=== PATIENT | female | born 1995 | race American Indian/Alaskan Native ===

== ENCOUNTER 2020-10-31 17:39 | Emergency (ER) | payer SELFPAY ==
[2020-10-31 20:02] VITALS: BP 154/79
--- NOTE | 2020-10-31 21:05 | Emergency Department Report ---
ED ENT HPI - General Chief complaint: Dental/Oral Stated complaint: ABCESS IN THE JAR Time Seen by Provider: 10/31/20 21:01 Source: patient Mode of arrival: Ambulatory Limitations: No Limitations - History of Present Illness Initial comments: Patient is a 25-year-old female presents emergency room complaints of a dental abscess to the right lower tooth that began yesterday. Patient states that she has had a cracked tooth in this region for multiple years. She states that she saw dentist approximately a year ago and was advised that she needed to have a tooth extraction but due to monetary issues she did not follow back up. She denies any fever, nausea, vomiting, diarrhea, chills, difficulty swallowing, difficulty breathing. No past medical history. No allergies to medications. She is currently on her menstrual cycle. - Related Data Previous Rx's Medication Instructions Recorded Last Taken Type Chlorhexidine Mouthwash [Peridex] 15 ml MM BID #1 bottle 10/31/20 Unknown Rx Naproxen 375 mg PO BID PRN #14 tablet 10/31/20 Unknown Rx Penicillin Vk [Veetids TAB] 500 mg PO QID 7 Days #56 tablet 10/31/20 Unknown Rx ED Dental HPI - General Chief complaint: Dental/Oral Stated complaint: ABCESS IN THE JAR Time Seen by Provider: 10/31/20 21:01 Source: patient Mode of arrival: Ambulatory Limitations: No Limitations - Related Data Previous Rx's Medication Instructions Recorded Last Taken Type Chlorhexidine Mouthwash [Peridex] 15 ml MM BID #1 bottle 10/31/20 Unknown Rx Naproxen 375 mg PO BID PRN #14 tablet 10/31/20 Unknown Rx Penicillin Vk [Veetids TAB] 500 mg PO QID 7 Days #56 tablet 10/31/20 Unknown Rx ED Review of Systems ROS: Stated complaint: ABCESS IN THE JAR Other details as noted in HPI Comment: All other systems reviewed and negative ED Past Medical Hx - Past Medical History Previous Medical History?: No - Surgical History Past Surgical History?: No - Medications Home Medications: Home Medications Medication Instructions Recorded Confirmed Last Taken Type Chlorhexidine Mouthwash [Peridex] 15 ml MM BID #1 bottle 10/31/20 Unknown Rx Naproxen 375 mg PO BID PRN #14 tablet 10/31/20 Unknown Rx Penicillin Vk [Veetids TAB] 500 mg PO QID 7 Days #56 tablet 10/31/20 Unknown Rx ED Physical Exam - General Limitations: No Limitations General appearance: alert, in no apparent distress - Head Head exam: Present: atraumatic, normocephalic - Eye Eye exam: Present: normal appearance - ENT ENT exam: Present: mucous membranes moist, other (there is a cracked tooth present to the right lower molar, there is adjacent edema of the gumline, mild right lower facial edema, uvula is midline, no uvular edema or deviation, no trismus, no tongue elevation, no muffled voice, no submandibular edema) - Respiratory Respiratory exam: Absent: respiratory distress, accessory muscle use - Neurological Exam Neurological exam: Present: alert, oriented X3 - Psychiatric Psychiatric exam: Present: normal affect, normal mood - Skin Skin exam: Present: warm, dry, intact ED Course Vital Signs 10/31/20 19:52 Temperature 98.0 F Pulse Rate 82 Respiratory 16 Rate Blood Pressure 154/79 O2 Sat by Pulse 100 Oximetry ED Medical Decision Making - Medical Decision Making Patient is a 25-year-old female presents emergency room complaints of a dental abscess to the right lower tooth that began yesterday. Patient states that she has had a cracked tooth in this region for multiple years. She states that she saw dentist approximately a year ago and was advised that she needed to have a tooth extraction but due to monetary issues she did not follow back up. She denies any fever, nausea, vomiting, diarrhea, chills, difficulty swallowing, difficulty breathing. No past medical history. No allergies to medications. She is currently on her menstrual cycle. vss. on exam: there is a cracked tooth present to the right lower molar, there is adjacent edema of the gumline, mild right lower facial edema, uvula is midline, no uvular edema or deviation, no trismus, no tongue elevation, no muffled voice, no submandibular edema. Examination appears consistent with dental abscess, no signs of facial cellulitis, facial abscess, or Marco's at this time. Patient given prescription for medication. Discussed the importance of outpatient follow-up. Advised patient Please take medication as prescribed. Please follow-up with a dentist. it is very important that you follow-up. Return to emergency room for any new or worsening symptoms. Critical care attestation.: If time is entered above; I have spent that time in minutes in the direct care of this critically ill patient, excluding procedure time. ED Disposition Clinical Impression: Cracked tooth, Dental caries, Dental abscess Disposition: 01 HOME / SELF CARE / HOMELESS Is pt being admited?: No Does the pt Need Aspirin: No Condition: Stable Instructions: Dental Abscess Additional Instructions: Please take medication as prescribed. Please follow-up with a dentist. it is very important that you follow-up. Return to emergency room for any new or worsening symptoms. Prescriptions: Naproxen 375 mg PO BID PRN #14 tablet PRN Reason: pain Chlorhexidine Mouthwash [Peridex] 15 ml MM BID #1 bottle Penicillin Vk [Veetids TAB] 500 mg PO QID 7 Days #56 tablet Referrals: [facility] [Outside] - 2-3 Days [facility] [Outside] - 2-3 Days Time of Disposition: 21:03 Print Language: HEBREW
== END 2020-10-31 21:30 | disposition home or self-care (01) ==
LOC: ED 17:39
DX: K04.7 Periapical abscess without sinus (principal); K02.9 Dental caries, unspecified; K03.81 Cracked tooth; Z79.899 Other long term (current) drug therapy
CPT/HCPCS: 99281

== ENCOUNTER 2021-09-20 17:24 | Emergency (ER) | payer OTHER ==
[2021-09-20 18:08] VITALS: BP 133/73
--- NOTE | 2021-09-20 18:57 | Emergency Department Report ---
ED General Adult HPI - General Chief complaint: Dental/Oral Stated complaint: TOOTHACHE Time Seen by Provider: 09/20/21 18:46 Source: patient Mode of arrival: Ambulatory Limitations: No Limitations - History of Present Illness Initial comments: 26-year-old female with no significant past medical history reports left upper dental pain at the second and last molar for about 2 weeks. Patient reports taking [id number]-nsfxduc medication with no relief in pain. Patient reports she has an upcoming appoint with her dentist in about 2 weeks. Patient reports no other acute signs or symptoms at this moment. No concerns of airway compromise. Severity scale (0 -10): 8 - Related Data Previous Rx's Medication Instructions Recorded Last Taken Type Chlorhexidine Mouthwash [Peridex] 15 ml MM BID #1 bottle 10/31/20 Unknown Rx Naproxen 375 mg PO BID PRN #14 tablet 10/31/20 Unknown Rx Penicillin Vk [Veetids TAB] 500 mg PO QID 7 Days #56 tablet 10/31/20 Unknown Rx Acetaminophen/Codeine [Tylenol 1 tab PO Q6H PRN 3 Days #9 tab 09/20/21 Unknown Rx /Codeine # 3 tab] Amoxicillin/K Clav Tab [Augmentin 1 tab PO Q12HR 10 Days #20 tab 09/20/21 Unknown Rx 875 mg] Allergies Allergy/AdvReac Type Severity Reaction Status Date / Time No Known Allergies Allergy Unverified 09/20/21 18:08 ED Review of Systems ROS: Stated complaint: TOOTHACHE Other details as noted in HPI Comment: All other systems reviewed and negative ENT: dental pain ED Past Medical Hx - Past Medical History Previous Medical History?: No - Medications Home Medications: Home Medications Medication Instructions Recorded Confirmed Last Taken Type Chlorhexidine Mouthwash [Peridex] 15 ml MM BID #1 bottle 10/31/20 Unknown Rx Naproxen 375 mg PO BID PRN #14 tablet 10/31/20 Unknown Rx Penicillin Vk [Veetids TAB] 500 mg PO QID 7 Days #56 tablet 10/31/20 Unknown Rx Acetaminophen/Codeine [Tylenol 1 tab PO Q6H PRN 3 Days #9 tab 09/20/21 Unknown Rx /Codeine # 3 tab] Amoxicillin/K Clav Tab [Augmentin 1 tab PO Q12HR 10 Days #20 tab 09/20/21 Un known Rx 875 mg] ED Physical Exam - General Limitations: No Limitations General appearance: alert, in no apparent distress - Head Head exam: Present: atraumatic, normocephalic - Eye Eye exam: Present: normal appearance - ENT ENT exam: Present: mucous membranes moist, other (Left upper dental pain with swelling at gumline. Swelling and tenderness involves the second and last molar . No dental abscess noted. No peritonsillar abscess noted. No drooling noted.) - Neck Neck exam: Present: normal inspection - Respiratory Respiratory exam: Present: normal lung sounds bilaterally. Absent: respiratory distress - Cardiovascular Cardiovascular Exam: Present: regular rate, normal rhythm. Absent: systolic murmur, diastolic murmur, rubs, gallop - GI/Abdominal GI/Abdominal exam: Present: soft, normal bowel sounds - Extremities Exam Extremities exam: Present: normal inspection - Back Exam Back exam: Present: normal inspection - Neurological Exam Neurological exam: Present: alert, oriented X3 - Psychiatric Psychiatric exam: Present: normal affect, normal mood - Skin Skin exam: Present: warm, dry, intact, normal color. Absent: rash ED Course Vital Signs 09/20/21 18:03 Temperature 98.9 F Pulse Rate 90 Blood Pressure 133/73 [Right] O2 Sat by Pulse 99 Oximetry ED Medical Decision Making - Medical Decision Making 26-year-old female with dental pain for about 2 weeks with swelling and tenderness to the left upper second and last molar. [id number] medications are not working. On physical exam there is tenderness and swelling to the second last molar of the left upper dental. No peritonsillar abscess noted. No airway concerns. Patient to be discharged with oral medications for pain and antibiotics. Patient reports she has a upcoming dentist appointment about 2 weeks. No further work-up is needed at this time. Patient agrees with plan of care and verbalized understanding. Vital Signs 09/20/21 18:03 Temperature 98.9 F Pulse Rate 90 Blood Pressure 133/73 [Right] O2 Sat by Pulse 99 Oximetry Critical care attestation.: If time is entered above; I have spent that time in minutes in the direct care of this critically ill patient, excluding procedure time. ED Disposition Clinical Impression: Dental infection, Pain, dental Disposition: 01 HOME / SELF CARE / HOMELESS Is pt being admited?: No Condition: Stable Instructions: Preventive Dental Care, Adult Prescriptions: Amoxicillin/K Clav Tab [Augmentin 875 mg] 1 tab PO Q12HR 10 Days #20 tab Acetaminophen/Codeine [Tylenol /Codeine # 3 tab] 1 tab PO Q6H PRN 3 Days #9 tab PRN Reason: Pain , Severe (7-10)
== END 2021-09-20 19:42 | disposition home or self-care (01) ==
LOC: ED 17:24
DX: K04.7 Periapical abscess without sinus (principal); Z79.899 Other long term (current) drug therapy
CPT/HCPCS: 99282